=== PATIENT | female | born 1960 | race Native Hawaiian/Other Pacific Islander ===

== ENCOUNTER 2018-03-17 03:52 | Emergency (ER) | payer BC, MEDICARE ==
[~2018-03-17] VITALS: Ht 157.5 cm; Wt 117.9 kg
[~2018-03-17 03:52] MED LIST: ASPIRIN81 M2 PO; AZELAST NASAL137 MC1 NASAL; BACTRIM DS TAB1 EACH PO; CHERATUSSIN DA480 ML; CLOBETASOL EMOL15 GM TP; FLEXERIL PO; MEDROLDOSEPACK PO; NORCO 5-325 TA1 EACH PO; NORVASC 5 MG TAB5 MG PO; NORVASC5 MG PO; OMNICEF; ZYRTEC 10 MG TA10 M1
[2018-03-17 04:25] LABS: ABSOLUTE BASOPHILS 0.1 thou/uL (0.0-0.2); ABSOLUTE EOSINOPHILS 0.4 thou/uL (0.0-0.7); ABSOLUTE LYMPHOCYTES 2.2 thou/uL (0.8-5.3); ABSOLUTE MONOCYTES 0.6 thou/uL (0.0-1.2); ABSOLUTE NEUTROPHILS 5.3 thou/uL (1.6-8.1); BASOPHILS 0.7 %; EOSINOPHILS 5.2 %; HEMATOCRIT 41.4 % (37.0-47.0); HEMOGLOBIN 13.6 gm/dL (12.0-15.0); LYMPHOCYTES 25.9 %; MCH 30.5 pg (26.0-34.0); MCV 92.4 fL (80.0-100.0); MONOCYTES 6.4 %; NUCLEATED RBCS 0 /100WBC; PLATELET COUNT* 277 thou/uL (150-400); POLYS 61.8 %; RBC 4.48 mil/uL (4.20-5.00); RDW-CV 13.4 % (10.5-14.5); WBC 8.6 thou/uL (4.0-11.0)
[2018-03-17 04:38] LABS: ANION GAP 9 mmol/L (7-16); BUN 14 mg/dL (7-18); CALCIUM 8.4 mg/dL (8.5-10.1); CHLORIDE 104 mmol/L (98-107); CO2 29 mmol/L (21-32); CREATININE 0.6 mg/dL (0.6-1.3); GLUCOSE 94 mg/dL (70-99); SODIUM 142 mmol/L (136-145)
[2018-03-17 04:50] LABS: ALBUMIN 3.2 g/dL (3.4-5.0); ALKALINE PHOSPHATASE 75 U/L (46-116); NT-PRO BRAIN NAT PEPTIDE 13 pg/mL (<300); SGOT 15 U/L (15-37); SGPT 19 U/L (30-65); TOTAL BILIRUBIN 0.4 mg/dL (<0.1-1.0); TOTAL PROTEIN 7.2 g/dL (6.4-8.2); TROPONIN-I LEVEL <0.06 ng/mL (<0.06)
[2018-03-17 05:28] LABS: URINE BILIRUBIN NEGATIVE (Negative); URINE BLOOD NEGATIVE (Negative); URINE CLARITY CLEAR; URINE COLOR YELLOW; URINE GLUCOSE-RANDOM NEGATIVE (Negative); URINE KETONES NEGATIVE (Negative); URINE LEUKOCYTES-REFLEX 1+ (Negative); URINE NITRITE-REFLEX NEGATIVE (Negative); URINE PROTEIN NEGATIVE (Negative); URINE SPECIFIC GRAVITY 1.025 (1.005-1.030); URINE UROBILINOGEN 0.2 E.U./dl (0.2-1.0)
[2018-03-17 05:54] LABS: BACTERIA-REFLEX 1-9 Few /HPF (None Seen); CASTS None Seen /LPF (None Seen); CRYSTALS None Seen /LPF (None Seen); MUCUS 4-6 Moderate strn/LPF (None Seen); SQUAMOUS 4-10 Moderate /LPF (0-3); URINE RBC 0-2 Rare /HPF (0-2); URINE WBC-REFLEX 6-15 Few /HPF (0-5)
[2018-03-17 07:50] VITALS: BP 124/57
--- NOTE | 2018-03-17 15:28 | EKG ---
[place] [address] ELECTROCARDIOGRAM REPORT Name: GRACIELASELINATERRA Room: [facility]#: [id number] Admission: 03/17/18 Attend Phys: Discharge: 03/17/18 Date of : 62 Report #: [id number] THIS REPORT FOR: //name// [facility] ED Test Date: 2018-03-17 Test Time: 03:57:49 Pat Name: TERRA EPSTEIN Department: Room: Gender: F Front End Architect: JELENA : 1960 Requested By: Sandra Correa Order Number: [id number] MD: Ricco Scott Measurements Intervals [place] Rate: 87 P: 52 TN: 204 QRS: 17 QRSD: 83 T: 21 QT: 381 QTc: 459 Interpretive Statements Sinus rhythm Borderline prolonged TN interval Baseline wander in lead(s) V4,V6 Compared to ECG 03/19/2017 10:35:21 No significant changes Electronically Signed On 03-17-2018 15:28:38 CONSULTING PSYCHOLOGIST by Ricco Scott [email or web address] <ELECTRONICALLY SIGNED> By: Ricco Scott MD, FACC 03/17/18 1528 [id number] Ricco Scott MD, [facility] /EPI
== END 2018-03-17 07:51 | disposition home or self-care (01) ==
LOC: M.ERS 03:52
PROVIDERS: Emergency Medicine
DX: R07.89 Other chest pain (principal); M54.2 Cervicalgia; R07.81 Pleurodynia; M54.9 Dorsalgia, unspecified; E66.9 Obesity, unspecified; Z68.42 Body mass index [BMI] 45.0-49.9, adult; Z98.890 Other specified postprocedural states

== ENCOUNTER 2020-03-08 18:13 | Emergency (ER) | payer MEDICARE ==
[~2020-03-08] VITALS: Ht 157.5 cm; Wt 108.9 kg
[2020-03-08] MEDS ORDERED: COZAAR 25 MG TA25 M1 PO (18:26)
[2020-03-08] MEDS ORDERED: LOSARTAN (18:26)
[2020-03-08 20:45] LABS: ABSOLUTE BASOPHILS 0.1 thou/uL (0.0-0.2); ABSOLUTE EOSINOPHILS 0.5 thou/uL (0.0-0.7); ABSOLUTE LYMPHOCYTES 2.4 thou/uL (0.8-5.3); ABSOLUTE MONOCYTES 0.5 thou/uL (0.0-1.2); ABSOLUTE NEUTROPHILS 4.9 thou/uL (1.6-8.1); BASOPHILS 0.7 %; EOSINOPHILS 5.9 %; HEMATOCRIT 41.4 % (37.0-47.0); HEMOGLOBIN 13.8 gm/dL (12.0-15.0); MCH 30.7 pg (26.0-34.0); MCHC 33.3 g/dL (28.0-37.0); MONOCYTES 5.8 %; NUCLEATED RBCS 0 /100WBC; PLATELET COUNT* 260 thou/uL (150-400); POLYS 58.6 %; RBC 4.49 mil/uL (4.20-5.00); RDW-CV 13.5 % (10.5-14.5); WBC 8.4 thou/uL (4.0-11.0)
[2020-03-08 20:53] LABS: CALCIUM 8.3 mg/dL (8.5-10.1); CREATININE 0.6 mg/dL (0.6-1.3); POTASSIUM 3.3 mmol/L (3.5-5.1)
[2020-03-08 20:58] LABS: ALBUMIN 3.5 g/dL (3.4-5.0); TOTAL BILIRUBIN 0.5 mg/dL (<0.1-1.0); TOTAL PROTEIN 7.2 g/dL (6.4-8.2)
[2020-03-08] MEDS ORDERED: CYCLOBENZAPRINE5 MG PO (22:05)
[2020-03-08] MEDS ORDERED: TORADOL 10 MG T10 MG PO (22:05)
[2020-03-08 22:25] VITALS: BP 141/84
--- NOTE | 2020-03-09 12:48 | EKG ---
[place] [address] ELECTROCARDIOGRAM REPORT Name: TERRA EPSTEIN SUSANMACARIO Room: [facility]#: [id number] Admission: 03/08/20 Attend Phys: Discharge: 03/08/20 Date of : 62 Date of Service: 03/08/201820 Report #: [id number] THIS REPORT FOR: //name// [facility] ED Test Date: 2020-03-08 Test Time: 18:21:10 Pat Name: TERRA EPSTEIN Department: Room: Gender: F Hotel Maintenance Engineer: TDS : 1960 Requested By: Suzy Colin Order Number: [id number] MD: Ricco Scott Measurements Intervals [place] Rate: 83 P: -18 VA: 199 QRS: 3 QRSD: 81 T: 15 QT: 371 QTc: 436 Interpretive Statements Sinus rhythm Compared to ECG 03/17/2018 03:57:49 No significant changes Electronically Signed On 03-09-2020 12:48:20 PROFESSIONAL SYSTEM ADMINISTRATOR by Ricco Scott [email or web address] <ELECTRONICALLY SIGNED> By: Ricco Scott MD, FACC 03/09/20 1248 1821 [id number] Ricco Scott MD, [facility] /EPI
== END 2020-03-08 22:26 | disposition home or self-care (01) ==
LOC: M.ERS 18:13
PROVIDERS: Personal Emergency Response Attendant
DX: M54.2 Cervicalgia (principal); R07.89 Other chest pain; M79.18 Myalgia, other site; Z20.828 Contact with and (suspected) exposure to other viral communicable diseases; E66.9 Obesity, unspecified; Z68.41 Body mass index [BMI] 40.0-44.9, adult; Z98.51 Tubal ligation status

== ENCOUNTER 2020-06-03 19:09 | Emergency (ER) | payer MEDICARE ==
[~2020-06-03] VITALS: Ht 154.9 cm; Wt 111.1 kg
[~2020-06-03 19:09] MED LIST changes: +COZAAR 25 MG TA25 M1 PO; +CYCLOBENZAPRINE5 MG PO; +LOSARTAN; +TORADOL 10 MG T10 MG PO
[2020-06-03 19:52] LABS: INFLUENZA A ANTIGEN Negative (Negative); INFLUENZA B ANTIGEN Negative (Negative)
[2020-06-03] MEDS ORDERED: PREDNISONE 20 M20 MG PO (20:02)
[2020-06-03] MEDS ORDERED: TESSALON PERLE100 MG PO (20:02)
[2020-06-03] MEDS ORDERED: APAP W/CODEINE1 TA2 PO (20:02)
[2020-06-03 20:17] VITALS: BP 144/78
== END 2020-06-03 20:17 | disposition home or self-care (01) ==
LOC: M.ERS 19:09
PROVIDERS: Physician Assistant
DX: J06.9 Acute upper respiratory infection, unspecified (principal); Z20.822 Contact with and (suspected) exposure to COVID-19; E66.9 Obesity, unspecified; Z68.42 Body mass index [BMI] 45.0-49.9, adult; Z98.51 Tubal ligation status